=== PATIENT | female | born 1970 ===

== ENCOUNTER → 2017-11-30 | Emergency (ER) | payer OTHER ==
[~2017-11-30] VITALS: Ht 157.5 cm; Wt 76.2 kg
[~2017-11-30] MED LIST: ACIDOPHILUS1 EAC3 PO; CIPRO500 MG PO; CLEOCIN HCL300 MG PO; CYCLOBENZAPRINE10 MG PO; KETO10TA2 PO; SIMVASTATIN5 MG; SYNTHROID137 MCG
== END | disposition home or self-care (01) ==
LOC: ER 01:28
DX: R07.89 Other chest pain (principal); M62.830 Muscle spasm of back; N39.0 Urinary tract infection, site not specified

== ENCOUNTER 2021-07-23 09:40 | Emergency (ER) | payer OTHER ==
[~2021-07-23] VITALS: Ht 160 cm; Wt 78.0 kg
== END 2021-07-23 12:41 | disposition home or self-care (01) ==
LOC: ER 09:40
DX: B34.9 Viral infection, unspecified (principal); Z20.822 Contact with and (suspected) exposure to COVID-19; R07.0 Pain in throat